=== PATIENT | male | born 1970 | race Caucasian/White ===

== ENCOUNTER 2024-10-16 02:31 | Observation (INO) | payer BC, OTHER, SELFPAY ==
[2024-10-16 03:27] LABS: #Basophils 0.04 10x3/uL (0.0-0.2); %Basophils 0.3 % (0.0-1.0); %Eosinophils 2.6 % (0.0-10.0); %Lymphocytes 8.9 % (21.0-51.0); %Monocytes 8.8 % (0.0-10.0); %Neutrophils 78.9 % (42.0-75.0); Hematocrit 43.7 % (42.0-52.0); Hemoglobin 15.7 g/dL (14.0-18.0); Mean Corpuscular HGB CONC 35.9 g/dL (32.0-36.0); Mean Corpuscular Hemoglobin 32.6 pg (27.0-31.0); Mean Corpuscular Volume 90.9 fL (78.0-98.0); Mean Platelet Volume 8.9 fL (7.4-10.4); Platelet Count 277 10x3/uL (130-400); RBC Distribution Width 12.4 % (11.5-14.5); Red Blood Cell (RBC) Count 4.81 mill/uL (4.70-6.10)
[2024-10-16] MEDS ORDERED: Morphine 4 MG/ML VIAL ONE (03:32)
[2024-10-16] MEDS ORDERED: Ketorolac Tromethamine 30 MG (1 mL) VIAL ONE (03:32)
[2024-10-16 03:33] LABS: Bacteria/HPF None Seen HPF (None Seen); Bilirubin Negative (Negative); Blood, Urine Negative (Negative); CAUTI Indications for Culture Pelvic or flank pain; Clarity Clear (Clear); Glucose, Urine (Dipstick) Normal (Negative); Ketone, Urine Negative (Negative); Leukocyte Negative Leu/uL (Negative); Nitrite Negative (Negative); Protein, Urine (Dipstick) 20 mg/dL (Neg-Trace); RBC/HPF 0-3 HPF (0-3); Squamous Epithelial None Seen HPF (0-3); Urobilinogen Normal mg/dL (Less than 2); WBC/HPF 0-3 HPF (0-3); pH, Urine 7.5 (5.0-9.0)
[2024-10-16] MEDS ORDERED: Ondansetron PF 4 MG/2 ML Vial ONE ×2 (03:33→13:19)
[2024-10-16] MEDS ORDERED: Famotidine/PF 20 mg/2ml Vial ONE (03:33)
[2024-10-16 03:34] LABS: Urine Culture Reflex No No
[2024-10-16 03:41] LABS: ALT (SGPT) 74 U/L (Less than 45); AST (SGOT) 123 U/L (11-34); Albumin 4.4 g/dL (3.1-4.5); Alkaline Phosphatase 84 U/L (40-110); Anion Gap 16 mmol/L (10-20); BUN (Urea Nitrogen) 8 mg/dL (8.4-25.7); Bilirubin, Total 1.2 mg/dL (0.3-1.2); Calc. Creatinine Clearance 0 mL/min (70-130); Calcium 9.1 mg/dL (7.8-10.44); Carbon Dioxide 21 mmol/L (22-29); Chloride 106 mmol/L (98-107); Estimated GFR 114; Globulin 2.9 g/dL (2.4-3.5); Glucose 120 mg/dL (70-105); Lipase 17 U/L (8-78); Potassium 3.4 mmol/L (3.5-5.1); Protein, Total 7.3 g/dL (6.0-8.3); Sodium 140 mmol/L (136-145)
[2024-10-16 03:47] LABS: Troponin I Less than 0.010 ng/mL (< 0.028)
[2024-10-16] MEDS ORDERED: Sodium Chloride 0.9% 100 ML ONE (04:54)
[2024-10-16] MEDS ORDERED: Piperacillin/Tazobactam 4.5 GM VIAL ONE (04:54)
[2024-10-16] MEDS ORDERED: Glucagon 1 MG/ML KIT IM PRN (05:38)
[2024-10-16] MEDS ORDERED: Dextrose 5% in Water 1,000 ML IV PRN (05:38)
[2024-10-16] MEDS ORDERED: Morphine 2 MG/ML VIAL SLOW IVP PRN (05:38)
[2024-10-16] MEDS ORDERED: Acetaminophen 325 MG TAB PO PRN (05:38)
[2024-10-16] MEDS ORDERED: Dextrose 50% Abboject 50 ML SYRINGE SLOW IVP PRN (05:38)
[2024-10-16] MEDS ORDERED: traMADol HCl 50 MG TAB PO PRN (05:38)
[2024-10-16 06:32] VITALS: BMI 25.9
[2024-10-16] MEDS: Lactated Ringer's 1,000 ML IV SCH (08:52)
[2024-10-16] MEDS: Ketorolac Tromethamine 30 MG (1 mL) VIAL IVP SCH ×2 (08:52→11:24)
[2024-10-16] MEDS: Acetaminophen 500 MG TAB PO SCH (08:53)
[2024-10-16] MEDS: Piperacillin/Tazobactam 3.375 GM in Sodium Chloride 0.9% 100 ML IVPB SCH (08:53)
[2024-10-16] MEDS: FLU (Fluarix Triv) TS24-25(6MOS UP)/PF 45 MCG/0.5 ML Syringe IM ONE (11:24)
[2024-10-16] MEDS ORDERED: EPINEPHrine 1 MG/ML VIAL ONE (12:40)
[2024-10-16] MEDS ORDERED: Bupivacaine PF 0.5% 30 ML VIAL ONE (12:40)
[2024-10-16] MEDS ORDERED: PROPOFOL 20 ML ONE ×2 (12:50→13:56)
[2024-10-16] MEDS ORDERED: Rocuronium Bromide 10 MG/ML (10ML VIAL) ONE (12:50)
[2024-10-16] MEDS ORDERED: Midazolam HCl 2 mg/2 ml Vial ONE (12:50)
[2024-10-16] MEDS ORDERED: Lidocaine 2% PF 5 ML VIAL ONE (12:50)
[2024-10-16] MEDS ORDERED: fentaNYL PF 100 MCG/2 ML SYRINGE ONE ×2 (12:50→13:42)
[2024-10-16] MEDS ORDERED: Dexamethasone 4 mg/ml Vial ONE (13:19)
[2024-10-16] MEDS ORDERED: PHENYLEPHRINE-NS 100 MCG/ML 10 ML SYRINGE ONE (13:20)
[2024-10-16] MEDS ORDERED: SUGAMMADEX SODIUM 200 MG/2 ML VIAL ONE (13:26)
[2024-10-16] MEDS ORDERED: Esmolol 100 MG/10 ML VIAL ONE (13:34)
[2024-10-16] MEDS ORDERED: Labetalol HCl 100 MG/20 ML VIAL ONE (13:38)
[2024-10-16] MEDS ORDERED: Ibuprofen 600 MG TAB PO PRN (14:46)
[2024-10-16] MEDS: Morphine 4 MG/ML VIAL SLOW IVP PRN (15:48)
[2024-10-16] MEDS: Ondansetron PF 4 MG/2 ML Vial IVP PRN (15:48)
[2024-10-16 16:38] VITALS: TEMP 98
[2024-10-16] MEDS: traMADol HCl 50 MG TAB PO PRN (16:55)
[2024-10-16 17:06] VITALS: BP 138/76
[2024-10-16] MEDS ORDERED: Zolpidem Tartrate 5 MG TAB PO SCH (21:00)
[2024-10-16] MEDS ORDERED: Enoxaparin 40 MG (0.4 mL) SYRINGE SC SCH (21:00)
[2024-10-17] MEDS ORDERED: FLUoxetine HCl 20 MG CAP PO SCH (09:00)
[2024-10-17] MEDS ORDERED: Metoprolol Succinate XL 100 MG ER.TAB PO SCH (09:00)
[2024-10-17] MEDS ORDERED: Pantoprazole 40 MG DR.TAB PO SCH (09:00)
[2024-10-17] MEDS ORDERED: Rosuvastatin 5 MG TAB PO SCH (09:00)
[2024-10-17] MEDS ORDERED: BuPROPion XL 150 MG ER.TAB PO SCH (09:00)
== END 2024-10-16 19:00 | disposition home or self-care (01) ==
LOC: ERS 02:31 → SURG B 06:24
PROVIDERS: ADMIT Specialist; ATTEND Specialist
PROC: 0FT44ZZ Resection of Gallbladder, Percutaneous Endoscopic Approach (ICD-10-PCS; principal; 2024-10-16)
DX: K80.12 Calculus of gallbladder with acute and chronic cholecystitis without obstruction (principal); I10 Essential (primary) hypertension; E78.5 Hyperlipidemia, unspecified; F41.9 Anxiety disorder, unspecified; K21.9 Gastro-esophageal reflux disease without esophagitis; Z98.52 Vasectomy status; Z79.899 Other long term (current) drug therapy
CPT/HCPCS: 76705; 80053; 81001; 83690; 84484; 85025; 88304; 90656; 93005; 96365; 96375; 96376; C1889; G0378; J0171; J0665; J1100; J1885; J2250; J2270; J2405; J2543; J2704; J3490; J7120